=== PATIENT | female | born 1955 | race Caucasian/White ===

== ENCOUNTER 2022-09-30 17:27 | Inpatient (IN) | payer BC, MEDICARE, OTHER ==
[~2022-09-30] VITALS: Ht 150.4 cm; Wt 77.3 kg
[2022-09-30 17:49] VITALS: BP 154/70
[2022-09-30 18:23] LABS: APPEARANCE,URINE CLEAR (CLEAR); BILIRUBIN,URINE NEGATIVE (NEGATIVE); BLOOD, URINE 1+ (NEGATIVE); COLOR,URINE YELLOW (YELLOW); LEUKOCYTE ESTERASE ,URINE NEGATIVE (NEGATIVE); NITRITE, URINE NEGATIVE (NEGATIVE); UGLUCOSE NEGATIVE (NEGATIVE)
[2022-09-30 18:44] LABS: BASOPHILS % (AUTO) 0.3 % (0.0-2.0); EOSINOPHILS # (AUTO) 0.3 K/uL (0-0.4); EOSINOPHILS % (AUTO) 1.7 % (0.0-4.0); HEMATOCRIT 43.6 % (36-48); HEMOGLOBIN 14.6 g/dL (12.0-16.0); LYMPHOCYTES # (AUTO) 2.2 K/uL (2.5-16.5); LYMPHOCYTES % (AUTO) 14.6 % (20.5-51.1); MEAN CORPUSCULAR HEMOGLOBIN 29 pg (27-31); MEAN CORPUSCULAR HGB CONC 34 g/dL (33-37); MEAN CORPUSCULAR VOLUME 86.1 fL (80-94); MONOCYTES % (AUTO) 6.6 % (1.7-9.3); NEUTROPHILS # (AUTO) 11.4 K/uL (1.8-7.7); NEUTROPHILS % (AUTO) 76.8 % (42.2-75.2); PLATELET COUNT (AUTO) 290 K/uL (140-450); RED BLOOD CELL COUNT(AUTO) 5.07 MIL/uL (4.20-5.40); RED CELL DISTRIBUTION WIDTH 15.2 % (11.6-13.7); WHITE BLOOD COUNT (AUTO) 14.8 K/uL (4.8-10.8)
[2022-09-30 18:53] LABS: WBC,URINE NONE SEEN /HPF (0-5)
[2022-09-30 19:00] LABS: ALBUMIN 4.3 g/dL (3.4-5.0); ANION GAP 13.1 (8-16); CARBON DIOXIDE 27.7 mmol/L (21-32); CREATININE 0.9 mg/dL (0.6-1.3); POTASSIUM 3.8 mmol/L (3.5-5.1); TOTAL BILIRUBIN 0.3 mg/dL (0.0-1.0)
[2022-09-30] MEDS ORDERED: HYDROcodone/APAP 5/325 MG 1 TAB TAB PO ONE (20:00)
[2022-09-30] MEDS ORDERED: ONDANSETRON 4 MG ODT PO ONE (20:00)
[2022-09-30] MEDS ORDERED: ALUMINUM HYD/MAG/SIMETHICONE 30 ML UDC PO ONE (20:00)
--- NOTE | 2022-09-30 21:20 | NUR ---
PT TO 4
[2022-09-30] MEDS ORDERED: MORPHINE SULFATE 4 MG/ML SYR IVP ONE (21:25)
[2022-09-30] MEDS ORDERED: NACL 0.9% 1,000 ML IV ONE ×2 (21:25→21:35)
[2022-09-30] MEDS ORDERED: metroNIDAZOLE 500 MG/NS PREMIX 100 ML IV ONE (21:30)
--- NOTE | 2022-09-30 22:00 | NUR ---
pt is here brought by her daughter for worsening abd pain for 2 days. Pt said that she vomitted 5 times at home. She is room air and ambulator. past medicacl history inculed HTN, Hyperlipedemia and DM2
[2022-09-30] MEDS ORDERED: cefTRIAXone 1,000 MG VIAL ONE (22:26)
[2022-09-30] MEDS ORDERED: MORPHINE SULFATE 4 MG/ML SYR ONE (22:29)
--- NOTE | 2022-09-30 23:30 | NUR ---
Pt wanted to go rest room. Nurse help the patient.
[2022-10-01] MEDS ORDERED: ONDANSETRON 4 MG/2 ML VIAL IM/IVP PRN (00:05)
[2022-10-01] MEDS ORDERED: guaiFENesin DM 200/20 MG-10 ML 10 ML UDC PO PRN (00:05)
[2022-10-01] MEDS ORDERED: ZOLPIDEM 5 MG TAB PO PRN (00:05)
[2022-10-01] MEDS ORDERED: POTASSIUM CHLORIDE 10 MEQ TABER PO PRN (00:05)
[2022-10-01] MEDS ORDERED: DOCUSATE SODIUM 100 MG GELCAP PO PRN (00:05)
[2022-10-01] MEDS ORDERED: ACETAMINOPHEN 325 MG TAB PO PRN (00:05)
[2022-10-01] MEDS ORDERED: hydrALAZINE 20 MG/ML VIAL IVP PRN (00:10)
[2022-10-01] MEDS ORDERED: DEXTROSE 50% 50 ML SYR IVP PRN (00:10)
[2022-10-01] MEDS ORDERED: INSULIN LISPRO SLIDING SCALE 100 UNITS/ML VIAL SUBQ PRN (00:10)
[2022-10-01 00:43] LABS: AMYLASE 63 U/L (25-115); MAGNESIUM 2.1 mg/dL (1.8-2.4); PHOSPHORUS 3.9 mg/dL (2.5-4.9)
[2022-10-01 00:44] LABS: PROTHROMBIN TIME 9.9 secs (10.8-13.4)
[2022-10-01] MEDS ORDERED: LOSA100T1 PO (00:48)
[2022-10-01] MEDS ORDERED: METF-1243 PO (00:48)
[2022-10-01] MEDS ORDERED: ATOR40TA PO (00:48)
[2022-10-01] MEDS ORDERED: AMLO5TAB PO (00:48)
[2022-10-01] MEDS: HYDROcodone/APAP 7.5/325 MG 1 TAB PO PRN (00:52)
[2022-10-01] MEDS: NACL 0.9% 1,000 ML IV SCH ×2 (01:05→16:45)
[2022-10-01] MEDS: metroNIDAZOLE 500 MG/NS PREMIX 100 ML IV SCH ×3 (07:33→23:05)
[2022-10-01] MEDS: BLOOD GLUCOSE MONITORING 1 DEV DEV FS SCH ×4 (07:37→21:11)
--- NOTE | 2022-10-01 07:40 | NUR ---
Patient will be admitted to care of dr waters. Admited to med surg. Will go to [id number] . Belongings list completed. Report to kathie ojeda.
[2022-10-01 08:00] VITALS: BP 131/65
--- NOTE | 2022-10-01 08:00 | NUR ---
RECEIVED REPORT FROM ER NURSE NIKHIL PARRISH FOR CONTINUITY OF CARE. PT WAS STABLE UPON TRANSPORT AND SHOWED NO SIGNS OF DISTRESS OR LABORED BREATHING. PT IS A&OX4, SKIN INTACT, ON ROOM AIR, I ABLE TO AMBULATE TO AND FROM THE REST ROOM AND IS TO BE MADE NPO AT NOON FOR HIDA SCAN. PT HS TWO IVS BOTH IN HER AC, R IS AN 20 THAT IS INFUSING NS @60ML/HR AND L IS 18G SALINE LOCKED. ALL SAFETY MEASURES IN PLACE INCLUDING BED IN LOW POSITION AND CALL LIGHT WITHIN REACH. WILL CONTINUE TO MONITOR.
--- NOTE | 2022-10-01 12:39 | NUR ---
PATIENT HAS BEEN SCREENED AND CATEGORIZED LOW NUTRITION RISK. PATIENT WILL BE SEEN WITHIN 7 DAYS OF ADMISSION. 10/08/[address]
[2022-10-01 14:09] LABS: BASOPHILS % (AUTO) 0.4 % (0.0-2.0); EOSINOPHILS # (AUTO) 0.3 K/uL (0-0.4); EOSINOPHILS % (AUTO) 2.3 % (0.0-4.0); HEMATOCRIT 40.2 % (36-48); HEMOGLOBIN 13.5 g/dL (12.0-16.0); LYMPHOCYTES # (AUTO) 2.4 K/uL (2.5-16.5); LYMPHOCYTES % (AUTO) 18.8 % (20.5-51.1); MEAN CORPUSCULAR HEMOGLOBIN 29 pg (27-31); MEAN CORPUSCULAR HGB CONC 34 g/dL (33-37); MEAN CORPUSCULAR VOLUME 86.9 fL (80-94); MONOCYTES # (AUTO) 1.3 K/uL (0.8-1.0); MONOCYTES % (AUTO) 10.2 % (1.7-9.3); NEUTROPHILS # (AUTO) 8.6 K/uL (1.8-7.7); NEUTROPHILS % (AUTO) 68.3 % (42.2-75.2); PLATELET COUNT (AUTO) 234 K/uL (140-450); RED BLOOD CELL COUNT(AUTO) 4.63 MIL/uL (4.20-5.40); RED CELL DISTRIBUTION WIDTH 15.4 % (11.6-13.7); WHITE BLOOD COUNT (AUTO) 12.6 K/uL (4.8-10.8)
[2022-10-01 14:24] LABS: ALBUMIN 3.5 g/dL (3.4-5.0); ANION GAP 10.3 (8-16); CARBON DIOXIDE 26.5 mmol/L (21-32); CREATININE 0.7 mg/dL (0.6-1.3); POTASSIUM 3.8 mmol/L (3.5-5.1); TOTAL BILIRUBIN 0.6 mg/dL (0.0-1.0)
[2022-10-01 16:00] VITALS: BP 129/63
[2022-10-01 16:09] LABS: BARBITURATE, URINE NEGATIVE ng/ml (NEG <=200); BENZODIAZEPINE, URINE POSITIVE ng/mL (NEG <=200); CANNABINOID, URINE NEGATIVE ng/mL (NEG <=50); COCAINE, URINE NEGATIVE ng/mL (NEG <=300); OPIATE, URINE NEGATIVE ng/mL (NEG <=2000); PHENCYCLIDINE SCREEN,URINE NEGATIVE ng/mL (NEG <=25)
[2022-10-01] MEDS ORDERED: MORPHINE SULFATE 2 MG/ML SYR IVP PRN (18:25)
--- NOTE | 2022-10-01 18:30 | NUR ---
ADMINISTERED 2MG/ML MORPHINE FOR NUCLEAR MED TECH DURING PTS HIDA SCAN.
[2022-10-01] MEDS ORDERED: MORPHINE SULFATE 2 MG/ML SYR ONE (18:32)
--- NOTE | 2022-10-01 19:20 | NUR ---
ENDORSED PT TO SOLAR TECHNICIAN NURSE FOR CONTINUITY OF CARE. PT STABLE AT THIS TIME.
--- NOTE | 2022-10-01 19:21 | NUR ---
RECEIVED ENDORSEMENT FROM SURY TALAVERA, PATIENT WAS STABLE DURING SHIFT CHANGE. PATIENT IN BED WITH TWO DAUGHTERS AT BEDSIDE. WANT TO KNOW IF SHE CAN EAT. PATIENT EDUCATION WAS GIVEN BECAUSE POSSIBLE SURGERY TONIGHT OR TOMORROW. PATIENT IS AWARE FOR THE PURPOSE FOR HER BEING IN THE HOSPITAL. PATIENT AND FAMILY UNDERSTOOD THE NEED FOR THE MD TO GIVE ORDERS. PATIENT CAN USE CALL LIGHT WITHOUT INCIDENT. SIDE RAILS UP X 2 FOR COMFORT AND SAFETY. IV CLEAN AND INTACT. NO S/S OF PAIN/DISCOMFORT. NO S/S OF RESPIRATORY DISTRESS. CALL LIGHT WITHIN REACH. [email or web address]
[2022-10-01 20:00] VITALS: BP 97/49
--- NOTE | 2022-10-01 21:30 | NUR ---
DR ROBERT CAN AND CHANGED ORDERS FOR DIET AND NPO AFTER MIDNIGHT FOR PROCEDURE TOMORROW. FAMILY WAS AT BEDSIDE AND NOTIFIED. PATIENT WAS GIVEN A SANDWICH WITH APPLE SAUCE WITH NO ADDED SUGAR. [email or web address]
--- NOTE | 2022-10-01 22:00 | NUR ---
SPOKE WITH DAUGHTER (SHEA) AND CONFIRMED THAT PATIENT WILL HAVE A PROCEDURE DONEE TOMORROW. [email or web address]
--- NOTE | 2022-10-02 01:42 | NUR ---
DURING ROUNDS PATIENT NOTED ASLEEP. NO S/S OF PAIN/DISCOMFORT. NO S/S OR RESPIRATORY DISTRESS. CALL LIGHT IN REACH. [email or web address]
[2022-10-02 04:00] VITALS: BP 125/65
[2022-10-02 05:34] LABS: BASOPHILS % (AUTO) 0.4 % (0.0-2.0); EOSINOPHILS # (AUTO) 0.6 K/uL (0-0.4); EOSINOPHILS % (AUTO) 5.5 % (0.0-4.0); HEMOGLOBIN 12.5 g/dL (12.0-16.0); LYMPHOCYTES # (AUTO) 2.7 K/uL (2.5-16.5); LYMPHOCYTES % (AUTO) 23.2 % (20.5-51.1); MEAN CORPUSCULAR HEMOGLOBIN 28 pg (27-31); MEAN CORPUSCULAR HGB CONC 33 g/dL (33-37); MEAN CORPUSCULAR VOLUME 86.6 fL (80-94); MONOCYTES # (AUTO) 1.2 K/uL (0.8-1.0); MONOCYTES % (AUTO) 10.5 % (1.7-9.3); NEUTROPHILS % (AUTO) 60.4 % (42.2-75.2); PLATELET COUNT (AUTO) 216 K/uL (140-450); RED BLOOD CELL COUNT(AUTO) 4.39 MIL/uL (4.20-5.40); RED CELL DISTRIBUTION WIDTH 15.4 % (11.6-13.7); WHITE BLOOD COUNT (AUTO) 11.6 K/uL (4.8-10.8)
--- NOTE | 2022-10-02 05:52 | NUR ---
RECEIVED CONSENT FOR POSSIBLE BEDSIDE CATH AND DRAINAGE INSERTION. USED YRNE. [email or web address]
[2022-10-02 05:58] LABS: CHOL/HDL RATIO 1.9 (1-4.5)
[2022-10-02] MEDS: metroNIDAZOLE 500 MG/NS PREMIX 100 ML IV SCH ×3 (06:10→22:58)
[2022-10-02 06:22] LABS: ALBUMIN 3.2 g/dL (3.4-5.0); ANION GAP 12.6 (8-16); CARBON DIOXIDE 23.9 mmol/L (21-32); CREATININE 0.7 mg/dL (0.6-1.3); POTASSIUM 3.5 mmol/L (3.5-5.1); TOTAL BILIRUBIN 0.4 mg/dL (0.0-1.0)
[2022-10-02] MEDS: BLOOD GLUCOSE MONITORING 1 DEV DEV FS SCH ×4 (06:36→20:48)
--- NOTE | 2022-10-02 07:08 | NUR ---
ENDORSED PATIENT TO SURY RN, FOR CONTINUITY OF CARE. PATIENT WAS STABLE DURING SHIFT REPORT. [email or web address]
--- NOTE | 2022-10-02 07:15 | NUR ---
RECEIVED REPORT FROM SERVICE TRAINER NURSE FOR CONTINUITY OF CARE. PT IS STABLE AT THIS TIME.
[2022-10-02 08:00] VITALS: BP 111/49
[2022-10-02] MEDS: NACL 0.9% 1,000 ML IV SCH (09:51)
--- NOTE | 2022-10-02 10:33 | NUR ---
FAMILY MEMBERS AT [facility]URSING STATION REQUESTING TO TAKE PT TO A DIFFERENT FACILITY AND DOES NOT WANT TO HAVE THIS HOSPITAL DO THE PROCEDURE BECAUSE "THEY HAVE HEARD DIFFERENT ANSWERS FROM THREE DIFFERENT DOCTORS." DR LITTLE MEDICAL STUDENT AT NURSING STATION DISCUSSING WITH FAMILY WELL REGARDING DISCUSSING THIS CASE WITH DR LITTLE AND IF PT IS STABLE ENOUGH CAN BE DISCHARGED AND POSSIBLE OUTPATIENT PROCEDURE. NOTIFIED DR LITTLE WELL REGARDING CLARIFICATION FOR AMA OR DISCHARGE ORDER. EXPLAINED AMA TO FAMILY, FAMILY VOICING THEIR FRUSTRATION. EXPLAINED PT CAN NOT BE DISCHARGED UNLESS THE ATTENDING FEELS THE PT IS STABLE ENOUGH.
--- NOTE | 2022-10-02 12:27 | NUR ---
DC PLANNING ATTEMPTED TO MEET PT AT BEDSIDE HOWEVER, PT CURRENTLY ON NUCLEAR PRECAUTIONS. SW TO FOLLOW
[2022-10-02] MEDS ORDERED: fentaNYL citrate 0.05 MG/ML VIAL ONE (12:40)
[2022-10-02] MEDS ORDERED: MIDAZOLAM 2 MG/2 ML VIAL ONE (12:40)
[2022-10-02] MEDS ORDERED: LIDOCAINE 1% 500 MG/50 ML VIAL ONE (13:53)
--- NOTE | 2022-10-02 15:00 | NUR ---
PT RETURNED FROM HER PROCEDURE. ASSESSED PT AND SHE STATED THAT SHE WAS IN 10/10 PAIN IN THE [facility]. NOT[address]IED [address] AND GAVE PT MORPHINE 2MG. DRAIN IS INTACT AND DRAIN FLUID.
[2022-10-02 16:00] VITALS: BP 113/50
--- NOTE | 2022-10-02 19:10 | NUR ---
ENDORSED PT TO COMPLEX CARE NURSE PRACTITIONER NURSE FOR CONTINUITY OF CARE. PT STABLE AT THIS TIME.
--- NOTE | 2022-10-02 19:11 | NUR ---
RECEIVED ENDORSEMENT FROM AKIN TALAVERA (REGISTRY), PATIENT WAS STABLE DURING SHIFT REPORT. PATIENT IS ALERT AND ORIENTED X 4 VIET[place]ESE SPEAKER. PATIENT HAS DAUGHTER AT BEDSIDE. PATIENT HAS PROCEDURE TODAY AND HAS A DRQAIN NOTED TO THE LEFT SIDE WITH DARK BROWN THICK AND DRAINAGE. PATIENT HAS SOME DISCOMFORT BECAUSE OF PLACEMENT OF DRAINAGE. NO NOTED RESPIRATORY DISTRESS. CHEST IS RISING AND FALLING WITHOUT INCIDENT. PATIENT WAS ABLE TO WALK TO THE RESTROOM WITHOUT ASSISTANCE. SIDE RAILS UP X 2 FOR SAFETY AND ADJUSTMENTS. CALL LIGHT WITHIN REACH. NURSING WILL FREQUENT TO MET AND SPEAK WITH SHEA (DAUGHTER) SAMUEL FOR COPIES AND PATIENT STATUS. [email or web address]
[2022-10-02 20:00] VITALS: BP 140/60
--- NOTE | 2022-10-02 22:26 | NUR ---
DAUGHTER SHEA SAMUEL PER SURGERY ASSISTANT PERMISSION VISIT WITH PATIENT. PATIENT HAD DRAINAGE OF 300 ML. PATIENT DENIES ANY PAIN AT THIS TIME. CALL LIGHT WITHIN REACH. [email or web address]
--- NOTE | 2022-10-03 00:01 | NUR ---
DAUGHTER LEFT OVER AN HOUR AGO AND WILL BE BACK WITH THE DPOA COPY. PATIENT NOTED IN BED ASLEEP. CHEST RISING AND FALLING WITHOUT INCIDENT. CALL LIGHT WITHIN REACH. [email or web address]
--- NOTE | 2022-10-03 00:51 | NUR ---
PATIENT IN BED ASLEEP. NO NOTED S/S OF PAIN/DISCOMFORT. NO NOTED S/S OF RESPIRATORY DISTRESS. CALL LIGHT WITHIN REACH. [email or web address]
[2022-10-03] MEDS: NACL 0.9% 1,000 ML IV SCH ×2 (02:05→17:45)
--- NOTE | 2022-10-03 03:18 | NUR ---
PATIENT IN BED ASLEEP. NO NOTED S/S OF PAIN/DISCOMFORT. NO NOTED S/S OF RESPIRATORY DISTRESS. CALL LIGHT WITHIN REACH. [email or web address]
[2022-10-03 04:00] VITALS: BP 114/58
--- NOTE | 2022-10-03 05:08 | NUR ---
PATIENT IN BED ASLEEP. NO NOTED S/S OF PAIN/DISCOMFORT. NO NOTED S/S OF RESPIRATORY DISTRESS. CALL LIGHT WITHIN REACH. [email or web address]
[2022-10-03 05:13] LABS: BASOPHILS % (AUTO) 0.2 % (0.0-2.0); EOSINOPHILS # (AUTO) 0.2 K/uL (0-0.4); EOSINOPHILS % (AUTO) 1.3 % (0.0-4.0); HEMOGLOBIN 12.5 g/dL (12.0-16.0); LYMPHOCYTES # (AUTO) 2.8 K/uL (2.5-16.5); LYMPHOCYTES % (AUTO) 22.5 % (20.5-51.1); MEAN CORPUSCULAR HEMOGLOBIN 28 pg (27-31); MEAN CORPUSCULAR HGB CONC 33 g/dL (33-37); MONOCYTES # (AUTO) 1.4 K/uL (0.8-1.0); MONOCYTES % (AUTO) 11.3 % (1.7-9.3); NEUTROPHILS # (AUTO) 8.1 K/uL (1.8-7.7); NEUTROPHILS % (AUTO) 64.7 % (42.2-75.2); PLATELET COUNT (AUTO) 227 K/uL (140-450); RED BLOOD CELL COUNT(AUTO) 4.42 MIL/uL (4.20-5.40); RED CELL DISTRIBUTION WIDTH 14.9 % (11.6-13.7); WHITE BLOOD COUNT (AUTO) 12.6 K/uL (4.8-10.8)
[2022-10-03 05:52] LABS: ANION GAP 13.6 (8-16); CARBON DIOXIDE 23.9 mmol/L (21-32); CREATININE 0.6 mg/dL (0.6-1.3); POTASSIUM 3.5 mmol/L (3.5-5.1); TOTAL BILIRUBIN 0.6 mg/dL (0.0-1.0)
[2022-10-03] MEDS: BLOOD GLUCOSE MONITORING 1 DEV DEV FS SCH ×3 (06:35→17:13)
[2022-10-03] MEDS: metroNIDAZOLE 500 MG/NS PREMIX 100 ML IV SCH ×2 (06:36→15:00)
--- NOTE | 2022-10-03 07:26 | NUR ---
ENDORSED PATIENT CARE TO JEAN BECKFORD, PATIENT WAS STABLE DURING SHIFT REPORT. [email or web address]
--- NOTE | 2022-10-03 07:30 | NUR ---
RECEIVED REPORT FROM DIRECTOR OF PHARMACY NURSE, MICKEY, FOR CONTINUITY OF CARE. PT IS IN BED AT THIS TIME RESTING. RESPIRATIONS ARE EVEN AND UNLABORED ON ROOM AIR. NO SIGNS OF DISTRESS NOTED. NO SIGNS OF PAIN OR DISCOMFORT NOTED. PT IS ALERT AND ORIENTED X4, ABLE TO FOLLOW COMMANDS, ABLE TO MAKE NEEDS KNOWN. PT IS CURRENTLY ON CLEAR LIQUID DIET AT THIS TIME. PT HAS IV TO L WRIST, 22G. SKIN IS WARM, DRY, AND INTACT. CALL LIGHT WITHIN REACH. ALL SAFETY MEASURES IN PLACE.
[2022-10-03 08:00] VITALS: BP 156/83
[2022-10-03] MEDS: HYDROcodone/APAP 7.5/325 MG 1 TAB PO PRN (09:44)
[2022-10-03] MEDS ORDERED: LEVO-481 PO (10:34)
[2022-10-03] MEDS ORDERED: METR-520 PO (10:35)
--- NOTE | 2022-10-03 11:00 | NUR ---
PT HAS DISCHARGE ORDER, HOWEVER, PT IS ASKING IF SHE IS OK TO DISCHARGE DUE TO HER CHOLECYSTOSTOMY. LEFT MESSAGE FOR DR ROBERT. AWAITING HIS REPLY.
[2022-10-03 18:02] VITALS: BP 136/83
--- NOTE | 2022-10-03 19:07 | NUR ---
PT DISCHARGED HOME WITH FAMILY. EDUCATED PT AND FAMILY ON DRAINAGE CARE. VERBALIZED UNDERSTANDING. IV REMOVED. IV CATHETER INTACT.
== END 2022-10-03 19:10 | disposition home or self-care (01) | DRG 872 ==
LOC: MED 17:27 → MTU 10-01 00:03
PROVIDERS: ADMIT Student in an Organized Health Care Education/Training Program; ATTEND Student in an Organized Health Care Education/Training Program
PROC: 0F9430Z Drainage of Gallbladder with Drainage Device, Percutaneous Approach (ICD-10-PCS; principal; 2022-10-02)
DX: A41.9 Sepsis, unspecified organism (principal); K80.00 Calculus of gallbladder with acute cholecystitis without obstruction; Q89.3 Situs inversus; I10 Essential (primary) hypertension; E78.5 Hyperlipidemia, unspecified; Z20.822 Contact with and (suspected) exposure to COVID-19; E11.9 Type 2 diabetes mellitus without complications
CPT/HCPCS: 36415; 75989; 76705; 78445; 80053; 80305; 81001; 82150; 82948; 83605; 83690; 83735; 83880; 84100; 84484; 85025; 85610; 85730; 87040; 87081; 93005; 96374; 96375; 97116; 99285; J0696; J2001; J2250; J2270; J3010; J3490; J7060; Q0092; Q0162

== ENCOUNTER 2022-11-01 09:01 | Emergency (ER) | payer MEDICARE, OTHER ==
[~2022-11-01] VITALS: Ht 152.4 cm; Wt 73.9 kg
[~2022-11-01 09:01] MED LIST: AMLO5TAB PO; ATOR40TA PO; LEVO-481 PO; LOSA100T2 PO; METF-1243 PO; METR-520 PO
[2022-11-01 09:13] VITALS: BP 132/71
[2022-11-01 10:40] VITALS: BP 132/71
--- NOTE | 2022-11-01 10:41 | NUR ---
Patient discharged with v/s stable. Written and verbal after care instructions given and explained. Patient verbalized understanding. Ambulatory with steady gait. All questions addressed prior to discharge. Advised to follow up with PMD.
== END 2022-11-01 10:40 | disposition home or self-care (01) ==
LOC: MED 09:01
DX: Z48.03 Encounter for change or removal of drains (principal); E11.9 Type 2 diabetes mellitus without complications; I10 Essential (primary) hypertension; Z79.899 Other long term (current) drug therapy; Z79.2 Long term (current) use of antibiotics
CPT/HCPCS: 99281